=== PATIENT | female | born 1995 | race Two or more races ===

== ENCOUNTER 2021-10-11 12:20 | Outpatient (REF) | payer OTHER, SELFPAY ==
[2021-10-11 13:41] LABS: Erythrocyte Sedimentation Rate 4 MM/HR (0-20)
[2021-10-13 01:32] LABS: Lyme Abs Screen <0.90 index
[2021-10-13 19:21] LABS: Anti Nuclear Antibody Screen NEGATIVE (NEGATIVE)
== END 2021-10-11 12:21 | disposition home or self-care (01) ==
LOC: HO.LAB 12:20
PROVIDERS: PCP Internal Medicine; Visit Provider Psychiatry & Neurology Neurology
DX: G43.009 Migraine without aura, not intractable, without status migrainosus (principal)
CPT/HCPCS: 36415; 85652; 86038; 86039; 86617; 86618